=== PATIENT | male | born 1980 | race American Indian/Alaskan Native ===

== ENCOUNTER 2017-07-12 09:17 | Inpatient (IN) | payer OTHER ==
[2017-07-12] MEDS ORDERED: ASPIRIN PO ONE (09:28)
[2017-07-12 10:17] LABS: Basophils % (Auto) 0.2 % (0.0-1.8); Eosinophils % (Auto) 0.1 % (0.0-4.3); Hematocrit 45.4 % (35.5-45.6); Hemoglobin 15.3 gm/dl (11.8-15.2); Mean Corpuscular HGB Conc 34 % (32-34); Mean Corpuscular Hemoglobin 28 pg (28-32); Mean Corpuscular Volume 83 fl (84-94); Monocytes # (Auto) 0.6 K/mm3 (0.0-0.8); Monocytes % (Auto) 7.5 % (0.0-7.3); Platelet Count 382 K/mm3 (140-440); Red Blood Count 5.49 M/mm3 (3.65-5.03); Red Cell Distribution Width 14.7 % (13.2-15.2)
[2017-07-12 10:31] LABS: BUN/Creatinine Ratio 16; Blood Urea Nitrogen 14 mg/dL (9-20); Calcium 9.6 mg/dL (8.4-10.2); Hemolysis Index 11
[2017-07-12 10:43] LABS: Chol/HDL Ratio 5.79 %; HDL Cholesterol 34 mg/dL (40-59)
[2017-07-12 10:44] LABS: LDL Cholesterol,Direct 146 mg/dL (50-130)
--- NOTE | 2017-07-12 16:14 | XRay Report ---
PORTABLE CHEST: Chest pain. An AP portable view of the chest demonstrates a normal cardiac contour considering the limits of this technique. The lungs are clear with no evidence of infiltrate, fluid or failure. IMPRESSION: Normal portable chest.
[2017-07-12 16:35] LABS: INR 0.91 (0.87-1.13); Partial Thromboplastin Time 27.4 Sec. (24.2-36.6)
[2017-07-12 16:54] LABS: Creatine Kinase MB 30.2 ng/mL (0.0-4.0)
[2017-07-12 16:57] LABS: Alanine Aminotransferase 45 units/L (7-56); Albumin 4.6 g/dL (3.9-5)
[2017-07-12 17:14] LABS: Bilirubin,Direct < 0.2 mg/dL (0-0.2)
[2017-07-12] MEDS ORDERED: ASPIRIN ONE (17:49)
--- NOTE | 2017-07-12 18:11 | Emergency Department Report ---
ED Chest Pain HPI - General Chief Complaint: Chest Pain Stated Complaint: C/P DIFF BREATHING Time Seen by Provider: 07/12/17 15:50 Source: patient Mode of arrival: Ambulatory Limitations: No Limitations - History of Present Illness Initial Comments: Patient complains of intermittent chest pain since Wednesday. He states he went to a urgent care on was diagnosed with reflux. He started taking Pepto-Bismol and noted that his stool got somewhat darker after taking the Pepto -Bismol. However he had no signs of GI bleeding prior to taking Pepto-Bismol. He describes the pain as being located in the substernal subxiphoid region. It does not usually radiate although he states he felt some unusual sensation once in the right subscapular area. That was not persistent. The quality of the pain is either a tightness or a burning. Sometimes it does feel worse after eating. However, the patient describes accompanying dyspnea which is somewhat worse on exertion. The patient denies a family history of known coronary artery disease. He denies any previous workup for chest pain. He smokes. He denies cocaine abuse. -: Gradual, days(s) Onset: during rest Pain Location: substernal Pain Radiation: none Severity: moderate Quality: tightness Consistency: intermittent, now resolved Improves With: nothing Worsens With: nothing re: dyspnea Other Symptoms: denies: cough, fever, syncope, rash, acid taste in mouth, leg swelling Treatments Prior to Arrival: other Aspirin use within the Past 7 Days: (0) No - Related Data Previous Rx's Medication Instructions Recorded Last Taken Type Oxycodone HCl/Acetaminophen 1 each PO Q4-6H PRN #20 tablet 07/21/14 Unknown Rx [Percocet 10-325 mg] Allergies Allergy/AdvReac Type Severity Reaction Status Date / Time No Known Allergies Allergy Verified 07/21/14 09:40 Heart Score - HEART Score History: Moderately suspicious EKG: Significant ST-depression Age: < 45 Risk factors: 1-2 risk factors Troponin: 1-3x normal limit HEART Score: 5 - Critical Actions Critical Actions: 4-6 pts:12-16.6% risk of adverse cardiac event. Should be admitted ED Review of Systems ROS: Stated complaint: C/P DIFF BREATHING Other details as noted in HPI Constitutional: denies: chills, fever Eyes: denies: eye pain, eye discharge, vision change ENT: denies: ear pain, throat pain Respiratory: shortness of breath. denies: cough, wheezing Cardiovascular: chest pain. denies: palpitations Endocrine: no symptoms reported Gastrointestinal: denies: abdominal pain, nausea, diarrhea Genitourinary: denies: urgency, dysuria Musculoskeletal: denies: back pain, joint swelling, arthralgia Skin: denies: rash, lesions Neurological: denies: headache, weakness, paresthesias Psychiatric: denies: anxiety, depression Hematological/Lymphatic: denies: easy bleeding, easy bruising ED Past Medical Hx - Past Medical History Previous Medical History?: No - Surgical History Past Surgical History?: No - Social History Smoking Status: Current Every Day Smoker Substance Use Type: Alcohol - Medications Home Medications: Home Medications Medication Instructions Recorded Confirmed Last Taken Type Oxycodone HCl/Acetaminophen 1 each PO Q4-6H PRN #20 tablet 07/21/14 Unknown Rx [Percocet 10-325 mg] ED Physical Exam - General Limitations: No Limitations General appearance: alert, in no apparent distress - Head Head exam: Present: atraumatic, normocephalic - Eye Eye exam: Present: normal appearance. Absent: scleral icterus - ENT ENT exam: Present: mucous membranes moist - Neck Neck exam: Present: normal inspection - Respiratory Respiratory exam: Present: normal lung sounds bilaterally. Absent: respiratory distress - Cardiovascular Cardiovascular Exam: Present: regular rate, normal rhythm. Absent: systolic murmur, diastolic murmur, rubs, gallop - GI/Abdominal GI/Abdominal exam: Present: soft, normal bowel sounds. Absent: distended, tenderness, guarding, rebound, rigid - Rectal Rectal exam: Present: deferred - Extremities Exam Extremities exam: Present: normal inspection, normal capillary refill. Absent: tenderness, pedal edema, calf tenderness - Back Exam Back exam: Present: normal inspection - Neurological Exam Neurological exam: Present: alert, oriented X3, CN II-XII intact. Absent: motor sensory deficit - Psychiatric Psychiatric exam: Present: normal affect, normal mood - Skin Skin exam: Present: warm, dry, intact, normal color. Absent: rash ED Course Vital Signs 07/12/17 09:20 Temperature 98.9 F Pulse Rate 106 H Respiratory 16 Rate Blood Pressure 153/94 O2 Sat by Pulse 99 Oximetry - Reevaluation(s) Reevaluation #1: It took quite a bit of encouragement to get the patient to stay in the hospital. At this point I believe he is staying. I discussed his case with Dr. Aranda who has reviewed his laboratory database as well as his serial EKGs. I believe the patient is being admitted by Dr. Best. I do think the patient has an acute coronary syndrome. Further care by the hospitalist service and [facility]. 07/12/17 18:10 TYRA score - Tyra Score Age > 65: (0) No Aspirin use within the Past 7 Days: (0) No 3 or more CAD Risk Factors: (0) No 2 or more Angina events in past 24 hrs: (1) Yes Known CAD with more than 50% Stenosis: (0) No Elevated Cardiac Markers: (1) Yes ST Deviation Greater than 0.5mm: (1) Yes TYRA Score: 3 ED Medical Decision Making - Lab Data Result diagrams: 07/12/17 09:57 07/12/17 09:57 Laboratory Results - last 24 hr 07/12/17 07/12/17 07/12/17 09:57 09:57 12:14 WBC 8.2 RBC 5.49 H Hgb 15.3 H Hct 45.4 MCV 83 L MCH 28 MCHC 34 RDW 14.7 Plt Count 382 Lymph % (Auto) 24.0 [place] % (Auto) 7.5 H Eos % (Auto) 0.1 Baso % (Auto) 0.2 Lymph # 2.0 [place] # 0.6 Eos # 0.0 Baso # 0.0 Seg Neutrophils % 68.2 Seg Neutrophils # 5.6 PT INR APTT Sodium 139 Potassium 4.2 Chloride 97.5 L Carbon Dioxide 27 Anion Gap 19 BUN 14 Creatinine 0.9 Estimated GFR > 60 BUN/Creatinine Ratio 16 Glucose 104 H Calcium 9.6 Total Bilirubin Direct Bilirubin Indirect Bilirubin AST ALT Alkaline Phosphatase Total Creatine Kinase CK-MB (CK-2) CK-MB (CK-2) Rel Index Troponin T 0.090 H 0.137 H* D Total Protein Albumin Albumin/Globulin Ratio Triglycerides 89 Cholesterol 197 LDL Cholesterol Direct 146 H HDL Cholesterol 34 L Cholesterol/HDL Ratio 5.79 Blood Type 07/12/17 07/12/17 07/12/17 15:22 16:06 16:06 WBC RBC Hgb Hct MCV MCH MCHC RDW Plt Count Lymph % (Auto) [place] % (Auto) Eos % (Auto) Baso % (Auto) Lymph # [place] # Eos # Baso # Seg Neutrophils % Seg Neutrophils # PT 12.7 INR 0.91 APTT 27.4 Sodium Potassium Chloride Carbon Dioxide Anion Gap BUN Creatinine Estimated GFR BUN/Creatinine Ratio Glucose Calcium Total Bilirubin 0.30 Direct Bilirubin < 0.2 Indirect Bilirubin 0.1 AST 52 H ALT 45 Alkaline Phosphatase 49 Total Creatine Kinase 496 H CK-MB (CK-2) 30.2 H CK-MB (CK-2) Rel Index 6.0 H Troponin T 0.157 H* Total Protein 7.9 Albumin 4.6 Albumin/Globulin Ratio 1.4 Triglycerides Cholesterol LDL Cholesterol Direct HDL Cholesterol Cholesterol/HDL Ratio Blood Type 07/12/17 16:06 WBC RBC Hgb Hct MCV MCH MCHC RDW Plt Count Lymph % (Auto) [place] % (Auto) Eos % (Auto) Baso % (Auto) Lymph # [place] # Eos # Baso # Seg Neutrophils % Seg Neutrophils # PT INR APTT Sodium Potassium Chloride Carbon Dioxide Anion Gap BUN Creatinine Estimated GFR BUN/Creatinine Ratio Glucose Calcium Total Bilirubin Direct Bilirubin Indirect Bilirubin AST ALT Alkaline Phosphatase Total Creatine Kinase CK-MB (CK-2) CK-MB (CK-2) Rel Index Troponin T Total Protein Albumin Albumin/Globulin Ratio Triglycerides Cholesterol LDL Cholesterol Direct HDL Cholesterol Cholesterol/HDL Ratio Blood Type A POSITIVE - EKG Data EKG shows normal: sinus rhythm, axis (normal), QRS complexes (consider left ventricular hypertrophy) Rate: normal - EKG Data Interpretation: other (patient's EKG is of concern for ischemia anterior wall.) - Radiology Data interpreted by me: Chest x-ray showed no acute process Critical care attestation.: If time is entered above; I have spent that time in minutes in the direct care of this critically ill patient, excluding procedure time. ED Disposition Clinical Impression: Acute coronary syndrome Disposition: OP ADMIT IP TO THIS HOSP Is pt being admited?: Yes Does the pt Need Aspirin: Yes Condition: Stable Referrals: PRIMARY CARE, [Primary Care Provider] - 3-5 Days Time of Disposition: 18:13
[2017-07-12 19:06] LABS: Bilirubin,Urine NEG (Negative); Blood,Urine NEG (Negative); Color,Urine Yellow (Yellow); Mucus,Urine 3+ /HPF; Nitrite,Urine NEG (Negative); Protein,Urine <15 mg/dL mg/dL (Negative); Urobilinogen,Urine < 2.0 mg/dL (<2.0)
[2017-07-12 19:28] LABS: Amphetamine Screen,Urine PRESUMPTIVE NEGATIVE; Benzodiazepines Screen,Urine PRESUMPTIVE NEGATIVE; Cannabinoid Screen,Urine PRESUMPTIVE NEGATIVE; Cocaine Screen,Urine PRESUMPTIVE NEGATIVE; Methadone Screen,Urine PRESUMPTIVE NEGATIVE; Opiate Screen,Urine PRESUMPTIVE NEGATIVE
[2017-07-12] MEDS ORDERED: PLAVIX PO ONE (20:42)
[2017-07-12] MEDS ORDERED: HEPARIN 10,000 UNITS/10 ML IV ONE (20:44)
--- NOTE | 2017-07-12 20:51 | Consultation ---
History of Present Illness Consult date: 07/12/17 Consult reason: chest pain History of present illness: The patient is a 37-year-old man who has had intermittent chest pain for over a week. He initially went to an urgent care where he was treated for estrogen esophageal reflux, is continued to be symptomatic prompting his emergency room presentation. The patient has often been exertional, and its primarily described as an epigastric discomfort. In addition, there is associated shortness of breath. In the emergency room, EKG was a sinus rhythm with biphasic T waves in the anterior precordial leads. In addition, the CK-MB was elevated at 30 and represented 6% of the total CK fraction. At this time in the emergency room, the patient is chest pain-free looks and feels better, in a stable sinus rhythm and stable hemodynamics. Past History Past Medical History: hypertension Medications and Allergies Allergies Allergy/AdvReac Type Severity Reaction Status Date / Time No Known Allergies Allergy Verified 07/21/14 09:40 Home Medications Medication Instructions Recorded Confirmed Last Taken Type Oxycodone HCl/Acetaminophen 1 each PO Q4-6H PRN #20 tablet 07/21/14 07/12/17 Unknown Rx [Percocet 10-325 mg] Review of Systems Cardiovascular: chest pain, shortness of breath, no orthopnea, no palpitations, no rapid/irregular heart beat, no edema, no syncope, no lightheadedness Physical Examination Vital Signs Temp Pulse Resp BP Pulse Ox 98.9 F 106 H 16 153/94 99 07/12/17 09:20 07/12/17 09:20 07/12/17 09:20 07/12/17 09:20 07/12/17 09:20 General appearance: no acute distress HEENT: Positive: PERRL Neck: Positive: neck supple Cardiac: Positive: Reg Rate and Rhythm Lungs: Positive: Decreased Breath Sounds Neuro: Positive: Grossly Intact Abdomen: Positive: Soft Male genitourinary: Positive: deferred Skin: Positive: Clear Extremities: Absent: edema Results 07/12/17 09:57 07/12/17 09:57 Cardiac Enzymes 07/12/17 Range/Units 16:06 AST 52 H (5-40) units/L CK-MB (CK-2) 30.2 H (0.0-4.0) ng/mL Coagulation 07/12/17 Range/Units 16:06 PT 12.7 (12.2-14.9) Sec. INR 0.91 (0.87-1.13) APTT 27.4 (24.2-36.6) Sec. Lipids 07/12/17 Range/Units 09:57 Triglycerides 89 (2-149) mg/dL Cholesterol 197 (50-199) mg/dL HDL Cholesterol 34 L (40-59) mg/dL Cholesterol/HDL Ratio 5.79 % CBC 07/12/17 Range/Units 09:57 WBC 8.2 (4.5-11.0) K/mm3 RBC 5.49 H (3.65-5.03) M/mm3 Hgb 15.3 H (11.8-15.2) gm/dl Hct 45.4 (35.5-45.6) % Plt Count 382 (140-440) K/mm3 Lymph # 2.0 (1.2-5.4) K/mm3 [place] # 0.6 (0.0-0.8) K/mm3 Eos # 0.0 (0.0-0.4) K/mm3 Baso # 0.0 (0.0-0.1) K/mm3 Comprehensive Metabolic Panel 07/12/17 07/12/17 Range/Units 09:57 16:06 Sodium 139 (137-145) mmol/L Potassium 4.2 (3.6-5.0) mmol/L Chloride 97.5 L (98-107) mmol/L Carbon Dioxide 27 (22-30) mmol/L BUN 14 (9-20) mg/dL Creatinine 0.9 (0.8-1.5) mg/dL Glucose 104 H (75-100) mg/dL Calcium 9.6 (8.4-10.2) mg/dL Direct Bilirubin < 0.2 (0-0.2) mg/dL Indirect Bilirubin 0.1 mg/dL AST 52 H (5-40) units/L ALT 45 (7-56) units/L Alkaline Phosphatase 49 (35-129) units/L Total Protein 7.9 (6.3-8.2) g/dL Albumin 4.6 (3.9-5) g/dL EKG interpretations - Telemetry EKG Rhythm: Sinus Rhythm (biphasic T waves in the anterior precordial leads) Assessment and Plan - Patient Problems (1) Non-ST elevation myocardial infarction (NSTEMI) Current Visit: Yes Status: Acute Plan to address problem: Patient presents with intermittent chest pain, ischemic changes on his EKG and elevation of cardiac isoenzymes all suggestive of a possible non-ST elevation myocardial infarction. We will admit to telemetry on heparin, aspirin, Plavix, beta blockers and nitrates. We'll recommend early invasive strategy with cardiac catheterization in the morning.
[2017-07-12] MEDS ORDERED: NACL 0.9% 500 ML 500 ML IV SCH (21:00)
[2017-07-12] MEDS ORDERED: HEPARIN/ 0.45% NACL-25,000 UNIT/500 ML 25,000 UNIT/500 ML BAG IV SCH (21:00)
[2017-07-12 21:09] LABS: Hematocrit 45.6 % (35.5-45.6); Hemoglobin 14.9 gm/dl (11.8-15.2)
[2017-07-12 21:17] LABS: INR 0.95 (0.87-1.13)
[2017-07-12 21:18] LABS: Partial Thromboplastin Time 27.3 Sec. (24.2-36.6)
--- NOTE | 2017-07-12 21:42 | History and Physical Report ---
History of Present Illness Date of examination: 07/12/17 Chief complaint: Chest pain History of present illness: 37-year-old -[place] male with no significant past medical history presented to the emergency department complaining of epigastric/substernal pain for the last 3-4 days. Pain is burning in quality, 8 out of 10 intensity, associated with shortness of breath, with no radiation. He denied cough, palpitation, leg swelling, nausea vomiting or diarrhea. The pain is aggravated by eating large fatty meal. Patient said he had occasional burning pain in the epigastric area on previous occasions. In the emergency department EKG was done and showed aphasic T waves in the anterior pericardial leads. Elevated troponin, trending up. REVIEW OF SYSTEMS: GENERAL: no weight change, no fatigue, no fever HEAD: no head ache EYES: no blurry vision, no acute visual loss EARS: no hearing loss, no discharge, no earache NOSE: no stuffiness, no sneezing, no discharge MOUTH, THROAT AND NECK: no bleeding gums, no sore throat, no swollen neck CARDIAC: As in the HPI. RESPIRATORY: + shortness of breath, no wheeze, no cough, no sputum, no hemoptysis, no asthma GI: no decreased appetite, no nausea, no vomiting, no dysphagia, no diarrhea, no constipation, + epigastric pain URINARY: no change in frequency, no urgency, no polyuria, no hematuria, no incontinence MUSCULOSKELETAL: no muscle weakness, no pain, no joint stiffness NEUROLOGIC: no loss of sensation/numbness, no tingling, no tremors, no weakness/ paralysis HEMATOLOGIC: no anemia, no easy bruising SKIN: no rashes ENDOCRINE: no heat/cold intolerance, no polyuria, no polydipsia, no thyroid problems, no diabetes PSYCHIATRIC: no anxiety, no depression, no suicidal ideations Past History Past Medical History: GERD, hypertension Past Surgical History: No surgical history Social history: smoking (5-6 cigarettes a day), alcohol abuse (occasionally), full code. denies: prescription drug abuse, IV drug use Family history: no significant family history Medications and Allergies Allergies Allergy/AdvReac Type Severity Reaction Status Date / Time No Known Allergies Allergy Verified 07/21/14 09:40 Home Medications Medication Instructions Recorded Confirmed Last Taken Type Oxycodone HCl/Acetaminophen 1 each PO Q4-6H PRN #20 tablet 07/21/14 07/12/17 Unknown Rx [Percocet 10-325 mg] Active Meds: Active Medications Aspirin (Aspirin) 325 mg PO QDAY REGLA Atorvastatin Calcium (Lipitor) 20 mg PO QHS REGLA Clopidogrel Bisulfate (Plavix) 75 mg PO QDAY REGLA Heparin Sodium/Sodium Chloride (Heparin/ 0.45% Nacl-25,000 Unit/500 Ml) 25,000 unit in 500 mls @ 20 mls/hr IV TITRATE REGLA; 1,000 UNITS/HR PRN Reason: Protocol Sodium Chloride (Nacl 0.9% 500 Ml) 500 mls @ 50 mls/hr IV DIRECT REGLA Stop: 07/13/17 06:59 Metoprolol Tartrate (Lopressor) 25 mg PO BID REGLA Nitroglycerin (Nitro-Bid 2%) 1 inch TP QIDNTG REGLA PRN Reason: Protocol Exam - Physical Exam Narrative exam: Not in cardiopulmonary distress. The patient is obese. Vital signs as documented. Head exam is unremarkable. No scleral icterus . Neck is without jugular venous distension, thyromegaly, or carotid bruits. Lungs are clear to auscultation. Cardiac exam reveals regular rate and Rhythm. First and second heart sounds normal. No murmurs, rubs or gallops. Abdominal exam reveals normal bowel sounds, no masses, no organomegaly and no aortic enlargement. Extremities are nonedematous and both femoral and pedal pulses are normal. [employer] OPERATOR: Alert and oriented 3. No focal weakness. - Constitutional Vitals: Temp Pulse Resp BP Pulse Ox 98.9 F 84 16 147/85 95 07/12/17 09:20 07/12/17 18:09 07/12/17 18:09 07/12/17 18:09 07/12/17 18:09 Results - Labs CBC & Chem 7: 07/12/17 20:58 07/12/17 09:57 Labs: Laboratory Last Values WBC 8.2 K/mm3 (4.5-11.0) 07/12/17 09:57 RBC 5.49 M/mm3 (3.65-5.03) H 07/12/17 09:57 Hgb 14.9 gm/dl (11.8-15.2) 07/12/17 20:58 Hct 45.6 % (35.5-45.6) 07/12/17 20:58 MCV 83 fl (84-94) L 07/12/17 09:57 MCH 28 pg (28-32) 07/12/17 09:57 MCHC 34 % (32-34) 07/12/17 09:57 RDW 14.7 % (13.2-15.2) 07/12/17 09:57 Plt Count 385 K/mm3 (140-440) 07/12/17 20:58 Lymph % (Auto) 24.0 % (13.4-35.0) 07/12/17 09:57 [place] % (Auto) 7.5 % (0.0-7.3) H 07/12/17 09:57 Eos % (Auto) 0.1 % (0.0-4.3) 07/12/17 09:57 Baso % (Auto) 0.2 % (0.0-1.8) 07/12/17 09:57 Lymph # 2.0 K/mm3 (1.2-5.4) 07/12/17 09:57 [place] # 0.6 K/mm3 (0.0-0.8) 07/12/17 09:57 Eos # 0.0 K/mm3 (0.0-0.4) 07/12/17 09:57 Baso # 0.0 K/mm3 (0.0-0.1) 07/12/17 09:57 Seg Neutrophils % 68.2 % (40.0-70.0) 07/12/17 09:57 Seg Neutrophils # 5.6 K/mm3 (1.8-7.7) 07/12/17 09:57 PT 13.1 Sec. (12.2-14.9) 07/12/17 20:58 INR 0.95 (0.87-1.13) 07/12/17 20:58 APTT 27.3 Sec. (24.2-36.6) 07/12/17 20:58 Sodium 139 mmol/L (137-145) 07/12/17 09:57 Potassium 4.2 mmol/L (3.6-5.0) 07/12/17 09:57 Chloride 97.5 mmol/L (98-107) L 07/12/17 09:57 Carbon Dioxide 27 mmol/L (22-30) 07/12/17 09:57 Anion Gap 19 mmol/L 07/12/17 09:57 BUN 14 mg/dL (9-20) 07/12/17 09:57 Creatinine 0.9 mg/dL (0.8-1.5) 07/12/17 09:57 Estimated GFR > 60 ml/min 07/12/17 09:57 BUN/Creatinine Ratio 16 % 07/12/17 09:57 Glucose 104 mg/dL (75-100) H 07/12/17 09:57 Calcium 9.6 mg/dL (8.4-10.2) 07/12/17 09:57 Total Bilirubin 0.30 mg/dL (0.1-1.2) 07/12/17 16:06 Direct Bilirubin < 0.2 mg/dL (0-0.2) 07/12/17 16:06 Indirect Bilirubin 0.1 mg/dL 07/12/17 16:06 AST 52 units/L (5-40) H 07/12/17 16:06 ALT 45 units/L (7-56) 07/12/17 16:06 Alkaline Phosphatase 49 units/L (35-129) 07/12/17 16:06 Total Creatine Kinase 496 units/L (55-170) H 07/12/17 16:06 CK-MB (CK-2) 30.2 ng/mL (0.0-4.0) H 07/12/17 16:06 CK-MB (CK-2) Rel Index 6.0 (0-4) H 07/12/17 16:06 Troponin T 0.157 ng/mL (0.00-0.029) H* 07/12/17 15:22 Total Protein 7.9 g/dL (6.3-8.2) 07/12/17 16:06 Albumin 4.6 g/dL (3.9-5) 07/12/17 16:06 Albumin/Globulin Ratio 1.4 % 07/12/17 16:06 Triglycerides 89 mg/dL (2-149) 07/12/17 09:57 Cholesterol 197 mg/dL (50-199) 07/12/17 09:57 LDL Cholesterol Direct 146 mg/dL (50-130) H 07/12/17 09:57 HDL Cholesterol 34 mg/dL (40-59) L 07/12/17 09:57 Cholesterol/HDL Ratio 5.79 % 07/12/17 09:57 Urine Color Yellow (Yellow) 07/12/17 Unknown Urine Turbidity Clear (Clear) 07/12/17 Unknown Urine pH 5.0 (5.0-7.0) 07/12/17 Unknown Ur Specific [place] 1.027 (1.003-1.030) 07/12/17 Unknown Urine Protein <15 mg/dl mg/dL (Negative) 07/12/17 Unknown Urine Glucose (UA) Neg mg/dL (Negative) 07/12/17 Unknown Urine Ketones Neg mg/dL (Negative) 07/12/17 Unknown Urine Blood Neg (Negative) 07/12/17 Unknown Urine Nitrite Neg (Negative) 07/12/17 Unknown Urine Bilirubin Neg (Negative) 07/12/17 Unknown Urine Urobilinogen < 2.0 mg/dL (<2.0) 07/12/17 Unknown Ur Leukocyte Esterase Neg (Negative) 07/12/17 Unknown Urine WBC (Auto) 4.0 /HPF (0.0-6.0) 07/12/17 Unknown Urine RBC (Auto) 9.0 /HPF (0.0-6.0) 07/12/17 Unknown Urine Mucus 3+ /HPF 07/12/17 Unknown Urine Opiates Screen Presumptive negative 07/12/17 18:35 Urine Methadone Screen Presumptive negative 07/12/17 18:35 Ur Barbiturates Screen Presumptive negative 07/12/17 18:35 Ur Phencyclidine Scrn Presumptive negative 07/12/17 18:35 Ur Amphetamines Screen Presumptive negative 07/12/17 18:35 U Benzodiazepines Scrn Presumptive negative 07/12/17 18:35 Urine Cocaine Screen Presumptive negative 07/12/17 18:35 U Marijuana (THC) Screen Presumptive negative 07/12/17 18:35 Drugs of Abuse Note Disclamer 07/12/17 18:35 Blood Type A POSITIVE 07/12/17 16:06 Antibody Screen Negative 07/12/17 16:06 - Imaging and Cardiology EKG: image reviewed (biphasic T waves in the anterior pericardial leads) Chest x-ray: image reviewed (normal) Assessment and Plan Assessment and plan: 37 year old -[place] male with no significant past medical history presented to the emergency department complaining of epigastric/substernal pain for the last 3-4 days. Cardiac enzymes are positive. NSTEMI - Patient is on heparin drip, statin, beta blockers, aspirin - Cardiology will cardiac cath in the morning GERD - patient is on famotidine DVT prophylaxis Disposition - Admit to telemetry floor Advance Directives: Yes VTE prophylaxis?: Chemical Plan of care discussed with patient/family: Yes
[2017-07-12] MEDS: LOPRESSOR PO SCH (22:55)
[2017-07-12] MEDS: PEPCID PO SCH (23:38)
[2017-07-13] MEDS: NITRO-BID 2% TP SCH ×3 (07:00→21:01)
[2017-07-13] MEDS ORDERED: CALAN ONE (08:25)
[2017-07-13] MEDS ORDERED: XYLOCAINE 2% INFILTRATI ONE (08:25)
[2017-07-13] MEDS ORDERED: HEPARIN/NS 5000 UNIT/500ML(CATH LAB) 1,000 ML IR ONE (08:25)
[2017-07-13] MEDS ORDERED: NITROGLYCERIN SYRINGE 3 ML ONE ×3 (08:26→12:24)
[2017-07-13] MEDS ORDERED: VERSED ONE (08:27)
[2017-07-13] MEDS: SUBLIMAZE ONE ×2 (11:50→12:16)
[2017-07-13] MEDS: HEPARIN 10,000 UNITS/10 ML ONE ×3 (11:56→12:47)
[2017-07-13] MEDS ORDERED: PLAVIX ONE (12:10)
--- NOTE | 2017-07-13 12:44 | Event Note ---
Date: 07/13/17 Cardiac cath completed via R radial approach, no complications. Findings: >95% mid LAD stenosis. Successful PCI with 3.5-4.0mm DE stents. Excellent post PCI results, no complications.
[2017-07-13] MEDS: PLAVIX PO SCH (12:47)
[2017-07-13] MEDS ORDERED: NACL 0.9% 1000 ML 1,000 ML IV SCH (13:00)
--- NOTE | 2017-07-13 14:32 | Progress Note ---
Assessment and Plan Assessment and plan: Patient is a 37-year-old man which are GERD, tobacco dependency (1 pack of [place]if[place] will last him 1 week) and alcohol abuse (a 5th of Joseph Tequila will last him 1 day) who presented with CP. He was found to have elevated troponin and diagnosed with non-STEMI and treated with IV heparin. He under cardiac cath and results as follows: Cardiac cath completed via R radial approach, no complications. Findings: >95% mid LAD stenosis. Successful PCI with 3.5-4.0mm DE stents. Excellent post PCI results, no complications. -NSTEMI s/p pci: Cardiology following bb,asa, plavix, statin, ntg -Alcohol abuse: Counseling done, start CIWA protocol -Tobacco dependancy: Counseling done -GERD: Use Pepcid due to stent History Interval history: Patient was seen and examined. Follow-up on current diagnosis/chest pain. Overnight uneventful. Patient denies any chest pain, shortness breath, nausea/ vomiting or severe headaches. Imaging, nursing note, chart, labs and old chart reviewed. Discussed with patient. Hospitalist Physical - Physical exam Narrative exam: GEN: WDWN, NAD, AWAKE, ALERT, ORIENTATED 3 HEENT: NCAT, EOMI, PERRL, OP Clear NECK: supple, no adenopathy, no thyromegaly, no JVD CVS/HEART: RRR, NORMAL S1S2, NO JVD, pulses present bilaterally CHEST/LUNGS: CTA B, Symmetrical chest expansion, good air entry bilaterally GI/Abdomen: soft, NTND, good bowel sounds, no guarding or rebound /Bladder: no suprapubic tenderness, no CVA or paraspinal tenderness EXT/Skin: no c/c/e, no obvious rash MSK: FROM x 4 Neuro: CN 2-12 grossly intact, no new focal deficits Psych: calm - Constitutional Vitals: Temp Pulse Resp BP Pulse Ox 99.0 F 83 18 138/84 98 07/12/17 20:00 07/13/17 00:13 07/13/17 00:09 07/12/17 20:00 07/13/17 00:09 General appearance: Present: no acute distress Results - Labs CBC & Chem 7: 07/12/17 20:58 07/12/17 09:57 Labs: Laboratory Last Values WBC 8.2 K/mm3 (4.5-11.0) 07/12/17 09:57 RBC 5.49 M/mm3 (3.65-5.03) H 07/12/17 09:57 Hgb 14.9 gm/dl (11.8-15.2) 07/12/17 20:58 Hct 45.6 % (35.5-45.6) 07/12/17 20:58 MCV 83 fl (84-94) L 07/12/17 09:57 MCH 28 pg (28-32) 07/12/17 09:57 MCHC 34 % (32-34) 07/12/17 09:57 RDW 14.7 % (13.2-15.2) 07/12/17 09:57 Plt Count 385 K/mm3 (140-440) 07/12/17 20:58 Lymph % (Auto) 24.0 % (13.4-35.0) 07/12/17 09:57 [place] % (Auto) 7.5 % (0.0-7.3) H 07/12/17 09:57 Eos % (Auto) 0.1 % (0.0-4.3) 07/12/17 09:57 Baso % (Auto) 0.2 % (0.0-1.8) 07/12/17 09:57 Lymph # 2.0 K/mm3 (1.2-5.4) 07/12/17 09:57 [place] # 0.6 K/mm3 (0.0-0.8) 07/12/17 09:57 Eos # 0.0 K/mm3 (0.0-0.4) 07/12/17 09:57 Baso # 0.0 K/mm3 (0.0-0.1) 07/12/17 09:57 Seg Neutrophils % 68.2 % (40.0-70.0) 07/12/17 09:57 Seg Neutrophils # 5.6 K/mm3 (1.8-7.7) 07/12/17 09:57 PT 13.1 Sec. (12.2-14.9) 07/12/17 20:58 INR 0.95 (0.87-1.13) 07/12/17 20:58 APTT 27.3 Sec. (24.2-36.6) 07/12/17 20:58 Heparin Anti-Xa Level 0.27 U.I./ml (0.3-0.7) L 07/13/17 04:22 Sodium 139 mmol/L (137-145) 07/12/17 09:57 Potassium 4.2 mmol/L (3.6-5.0) 07/12/17 09:57 Chloride 97.5 mmol/L (98-107) L 07/12/17 09:57 Carbon Dioxide 27 mmol/L (22-30) 07/12/17 09:57 Anion Gap 19 mmol/L 07/12/17 09:57 BUN 14 mg/dL (9-20) 07/12/17 09:57 Creatinine 0.9 mg/dL (0.8-1.5) 07/12/17 09:57 Estimated GFR > 60 ml/min 07/12/17 09:57 BUN/Creatinine Ratio 16 % 07/12/17 09:57 Glucose 104 mg/dL (75-100) H 07/12/17 09:57 POC Glucose 90 (70-105) 07/13/17 05:15 Calcium 9.6 mg/dL (8.4-10.2) 07/12/17 09:57 Total Bilirubin 0.30 mg/dL (0.1-1.2) 07/12/17 16:06 Direct Bilirubin < 0.2 mg/dL (0-0.2) 07/12/17 16:06 Indirect Bilirubin 0.1 mg/dL 07/12/17 16:06 AST 52 units/L (5-40) H 07/12/17 16:06 ALT 45 units/L (7-56) 07/12/17 16:06 Alkaline Phosphatase 49 units/L (35-129) 07/12/17 16:06 Total Creatine Kinase 496 units/L (55-170) H 07/12/17 16:06 CK-MB (CK-2) 30.2 ng/mL (0.0-4.0) H 07/12/17 16:06 CK-MB (CK-2) Rel Index 6.0 (0-4) H 07/12/17 16:06 Troponin T 0.157 ng/mL (0.00-0.029) H* 07/12/17 15:22 Total Protein 7.9 g/dL (6.3-8.2) 07/12/17 16:06 Albumin 4.6 g/dL (3.9-5) 07/12/17 16:06 Albumin/Globulin Ratio 1.4 % 07/12/17 16:06 Triglycerides 89 mg/dL (2-149) 07/12/17 09:57 Cholesterol 197 mg/dL (50-199) 07/12/17 09:57 LDL Cholesterol Direct 146 mg/dL (50-130) H 07/12/17 09:57 HDL Cholesterol 34 mg/dL (40-59) L 07/12/17 09:57 Cholesterol/HDL Ratio 5.79 % 07/12/17 09:57 Urine Color Yellow (Yellow) 07/12/17 Unknown Urine Turbidity Clear (Clear) 07/12/17 Unknown Urine pH 5.0 (5.0-7.0) 07/12/17 Unknown Ur Specific [place] 1.027 (1.003-1.030) 07/12/17 Unknown Urine Protein <15 mg/dl mg/dL (Negative) 07/12/17 Unknown Urine Glucose (UA) Neg mg/dL (Negative) 07/12/17 Unknown Urine Ketones Neg mg/dL (Negative) 07/12/17 Unknown Urine Blood Neg (Negative) 07/12/17 Unknown Urine Nitrite Neg (Negative) 07/12/17 Unknown Urine Bilirubin Neg (Negative) 07/12/17 Unknown Urine Urobilinogen < 2.0 mg/dL (<2.0) 07/12/17 Unknown Ur Leukocyte Esterase Neg (Negative) 07/12/17 Unknown Urine WBC (Auto) 4.0 /HPF (0.0-6.0) 07/12/17 Unknown Urine RBC (Auto) 9.0 /HPF (0.0-6.0) 07/12/17 Unknown Urine Mucus 3+ /HPF 07/12/17 Unknown Urine Opiates Screen Presumptive negative 07/12/17 18:35 Urine Methadone Screen Presumptive negative 07/12/17 18:35 Ur Barbiturates Screen Presumptive negative 07/12/17 18:35 Ur Phencyclidine Scrn Presumptive negative 07/12/17 18:35 Ur Amphetamines Screen Presumptive negative 07/12/17 18:35 U Benzodiazepines Scrn Presumptive negative 07/12/17 18:35 Urine Cocaine Screen Presumptive negative 07/12/17 18:35 U Marijuana (THC) Screen Presumptive negative 07/12/17 18:35 Drugs of Abuse Note Disclamer 07/12/17 18:35 Blood Type A POSITIVE 07/12/17 16:06 Antibody Screen Negative 07/12/17 16:06
[2017-07-13] MEDS ORDERED: ATIVAN IV PRN ×3 (14:33)
[2017-07-13] MEDS ORDERED: HALDOL IV PRN (14:33)
[2017-07-13] MEDS ORDERED: MORPHINE IV PRN (14:41)
[2017-07-13] MEDS ORDERED: TYLENOL PO PRN (14:41)
[2017-07-13] MEDS ORDERED: NORCO 5/325 ONE (15:03)
[2017-07-13] MEDS: NORCO 5/325 PO PRN ×2 (15:04→22:49)
--- NOTE | 2017-07-13 16:34 | Cardiac Catherization Report ---
CARDIAC CATHETERIZATION AND CORONARY ANGIOPLASTY REPORT REASON FOR PROCEDURE: The patient is a 37-year-old man who presented with acute coronary syndrome, manifested by exertional chest pain, biphasic T waves on the EKG and elevated cardiac isoenzymes consistent with a non-ST elevation myocardial infarction. Early invasive strategy with cardiac catheterization was recommended. The risks and benefits were discussed with the patient and he consented to proceed. PROCEDURE: 1. Left heart catheterization. 2. Selective left and right coronary angiography. 3. Left ventricle angiography. The patient was prepped and draped in a sterile fashion after informed consent. The right radial cath site was prepped and draped after a negative Trip's test. The right radial artery was entered using Seldinger technique followed by placement of a 6-Japanese hydrophilic sheath. Routine radial cocktail was administered via the sheath. Selective left and right coronary angiography was performed using a 3.5 left Italo catheter and #4 right Italo. The right Italo was used for left ventricular catheterization and left ventricle angiography. The angiograms were reviewed. The left main coronary artery was free of significant disease. The left anterior descending artery contained an eccentric, focal, 95-99% stenosis of its proximal to mid segment. This lesion was associated with delayed antegrade flow. The circumflex artery and its obtuse marginal branches contained mild luminal irregularities. The right coronary artery was dominant. This vessel contained a long, 20-30% stenosis of its proximal segment. Left ventricular systolic function was at lower limits of normal, ejection fraction 50-55%. CORONARY ANGIOPLASTY: Ad hoc coronary angioplasty of the mid LAD stenosis was recommended. We exchanged for a 3.0 XB guiding catheter and advanced to left coronary ostium. A 0.014 inch [facility] 50 wire was introduced into the LAD, successfully maneuvered across the stenotic lesion. Following wire placement in the distal LAD, we then predilated the stenosis using a 3.0 mm balloon catheter. Following predilatation, a 4.0 mm drug-eluting stent was then deployed to the primary lesion and inflated to optimal pressures. Following that, another 3.5 mm drug-eluting stent was deployed in anastomosis to the distal border of the first stent to cover a possible edge dissection of the first stent. Following deployment of both stents, there was an excellent angiographic result, zero residual stenosis and TYRA 3 flow. Procedure was well tolerated by the patient and no complications. CONCLUSION: 1. Coronary artery disease with a greater than 95% stenosis of the proximal to mid LAD. 2. Successful angioplasty and stenting with deployment of serial, 3.5-4.0 mm drug-eluting stents. 3. Left ventricular systolic function at lower limits of normal, ejection fraction 50-55%. JOB# [id number] SERGE/NTS
[2017-07-13] MEDS: ASPIRIN PO SCH (18:27)
[2017-07-13] MEDS: VITAMIN B-1 PO SCH (18:27)
[2017-07-13] MEDS: PEPCID PO SCH ×2 (18:28→22:50)
[2017-07-13] MEDS: LOPRESSOR PO SCH ×2 (18:34→22:50)
[2017-07-14] MEDS: NITRO-BID 2% TP SCH ×2 (06:26→09:08)
[2017-07-14 06:31] LABS: Basophils % (Auto) 0.3 % (0.0-1.8); Eosinophils # (Auto) 0.1 K/mm3 (0.0-0.4); Eosinophils % (Auto) 1.3 % (0.0-4.3); Hematocrit 42.4 % (35.5-45.6); Lymphocytes # (Auto) 2.4 K/mm3 (1.2-5.4); Lymphocytes % (Auto) 28.1 % (13.4-35.0); Mean Corpuscular HGB Conc 33 % (32-34); Mean Corpuscular Hemoglobin 28 pg (28-32); Mean Corpuscular Volume 84 fl (84-94); Platelet Count 363 K/mm3 (140-440); Red Blood Count 5.02 M/mm3 (3.65-5.03); Red Cell Distribution Width 14.8 % (13.2-15.2)
[2017-07-14 06:58] LABS: Creatine Kinase MB 32.6 ng/mL (0.0-4.0)
[2017-07-14 07:00] LABS: BUN/Creatinine Ratio 15; Blood Urea Nitrogen 12 mg/dL (9-20); Calcium 8.9 mg/dL (8.4-10.2); Hemolysis Index 13
--- NOTE | 2017-07-14 07:59 | XRay Report ---
AP CHEST: HISTORY: chest pain AP view of the chest demonstrates a normal mediastinal and cardiac contour with clear lungs and normal bony and soft tissue structures. IMPRESSION: Unremarkable AP chest.
[2017-07-14 08:14] VITALS: BP 136/92
[2017-07-14] MEDS: PLAVIX PO SCH (09:07)
[2017-07-14] MEDS: PEPCID PO SCH (09:07)
[2017-07-14] MEDS: LOPRESSOR PO SCH (09:07)
[2017-07-14] MEDS: VITAMIN B-1 PO SCH (09:07)
[2017-07-14] MEDS: ASPIRIN PO SCH (09:07)
--- NOTE | 2017-07-14 11:21 | Progress Note ---
Assessment and Plan NSTEMI s/p PCI of mid LAD stenosis using DE stents EF 50-55% on angiogram Tobacco abuse Recommendations: Advised smoking cessation. Continue medical therapy for coronary artery disease to includin plavix and aspirin without interruption. Once discharged, follow up with [facility] as scheduled . Subjective Date of service: 07/14/17 Interval history: Patient reports intermittent chest pressure overnight. Objective Vital Signs Temp Pulse Pulse Resp Resp BP BP 07/14/17 10:00 72 68 18 07/14/17 09:11 07/14/17 09:08 68 136/92 07/14/17 09:07 68 136/92 07/14/17 07:37 97.8 F 68 18 136/92 07/14/17 05:06 97.8 F 71 18 115/68 07/14/17 00:18 97.5 F L 20 124/67 07/14/17 00:17 97.5 F L 18 107/63 07/14/17 00:16 97.5 F L 71 18 119/61 07/13/17 23:49 20 07/13/17 22:50 74 128/88 07/13/17 22:49 18 07/13/17 20:28 07/13/17 20:22 80 07/13/17 20:09 20 07/13/17 19:56 97.5 F L 74 18 128/88 07/13/17 19:42 20 07/13/17 19:40 18 18 07/13/17 19:39 20 07/13/17 18:34 80 127/78 07/13/17 17:16 86 Pulse Ox 07/14/17 10:00 98 07/14/17 09:11 95 07/14/17 09:08 07/14/17 09:07 07/14/17 07:37 98 07/14/17 05:06 99 07/14/17 00:18 07/14/17 00:17 07/14/17 00:16 97 07/13/17 23:49 07/13/17 22:50 07/13/17 22:49 07/13/17 20:28 100 07/13/17 20:22 07/13/17 20:09 07/13/17 19:56 07/13/17 19:42 07/13/17 19:40 98 07/13/17 19:39 07/13/17 18:34 07/13/17 17:16 100 - Physical Examination General: No Apparent Distress HEENT: Positive: PERRL Cardiac: Positive: Reg Rate and Rhythm Neuro: Positive: Grossly Intact Incision: Cardiac Cath Site (right radial) - Labs and Meds Cardiac Enzymes 07/14/17 Range/Units 04:50 CK-MB (CK-2) 32.6 H (0.0-4.0) ng/mL CBC 07/14/17 Range/Units 04:50 WBC 8.7 (4.5-11.0) K/mm3 RBC 5.02 (3.65-5.03) M/mm3 Hgb 14.0 (11.8-15.2) gm/dl Hct 42.4 (35.5-45.6) % Plt Count 363 (140-440) K/mm3 Lymph # 2.4 (1.2-5.4) K/mm3 [place] # 1.0 H (0.0-0.8) K/mm3 Eos # 0.1 (0.0-0.4) K/mm3 Baso # 0.0 (0.0-0.1) K/mm3 Comprehensive Metabolic Panel 07/14/17 Range/Units 04:50 Sodium 136 L (137-145) mmol/L Potassium 4.5 (3.6-5.0) mmol/L Chloride 97.5 L (98-107) mmol/L Carbon Dioxide 24 (22-30) mmol/L BUN 12 (9-20) mg/dL Creatinine 0.8 (0.8-1.5) mg/dL Glucose 96 (75-100) mg/dL Calcium 8.9 (8.4-10.2) mg/dL - Imaging and Cardiology EKG: image reviewed (biphasic T waves in the anterior pericardial leads)
--- NOTE | 2017-07-14 11:58 | Progress Note ---
Assessment and Plan Assessment and plan: Patient is a 37-year-old man which are GERD, tobacco dependency (1 pack of [place]if[place] will last him 1 week) and alcohol abuse (a 5th of Joseph Tequila will last him 1 day) who presented with CP. He was found to have elevated troponin and diagnosed with non-STEMI and treated with IV heparin. He under cardiac cath and results as follows: Cardiac cath completed via R radial approach, no complications. Findings: >95% mid LAD stenosis. Successful PCI with 3.5-4.0mm DE stents. Excellent post PCI results, no complications. -NSTEMI s/p pci: Cardiology following bb,asa, plavix, statin, ntg -Alcohol abuse: Counseling done, start CIWA protocol -Tobacco dependancy: Counseling done -GERD: Use Pepcid due to stent D/c once cleared by Cardiology, he still has ntg paste History Interval history: Patient was seen and examined. Follow-up on current diagnosis/chest pain. Overnight uneventful. Patient denies any shortness breath, nausea/vomiting or severe headaches. Imaging, nursing note, chart, labs and old chart reviewed. Discussed with patient. He had intermitted chest pain overnight. Hospitalist Physical - Physical exam Narrative exam: GEN: WDWN, NAD, AWAKE, ALERT, ORIENTATED 3 HEENT: NCAT, EOMI, PERRL, OP Clear NECK: supple, no adenopathy, no thyromegaly, no JVD CVS/HEART: RRR, NORMAL S1S2, NO JVD, pulses present bilaterally CHEST/LUNGS: CTA B, Symmetrical chest expansion, good air entry bilaterally GI/Abdomen: soft, NTND, good bowel sounds, no guarding or rebound /Bladder: no suprapubic tenderness, no CVA or paraspinal tenderness EXT/Skin: no c/c/e, no obvious rash MSK: FROM x 4 Neuro: CN 2-12 grossly intact, no new focal deficits Psych: calm - Constitutional Vitals: Temp Pulse Resp BP Pulse Ox 97.8 F 68 18 136/92 98 07/14/17 07:37 07/14/17 10:00 07/14/17 10:00 07/14/17 09:08 07/14/17 10:00 General appearance: Present: no acute distress Results - Labs CBC & Chem 7: 07/14/17 04:50 07/14/17 04:50 Labs: Laboratory Last Values WBC 8.7 K/mm3 (4.5-11.0) 07/14/17 04:50 RBC 5.02 M/mm3 (3.65-5.03) 07/14/17 04:50 Hgb 14.0 gm/dl (11.8-15.2) 07/14/17 04:50 Hct 42.4 % (35.5-45.6) 07/14/17 04:50 MCV 84 fl (84-94) 07/14/17 04:50 MCH 28 pg (28-32) 07/14/17 04:50 MCHC 33 % (32-34) 07/14/17 04:50 RDW 14.8 % (13.2-15.2) 07/14/17 04:50 Plt Count 363 K/mm3 (140-440) 07/14/17 04:50 Lymph % (Auto) 28.1 % (13.4-35.0) 07/14/17 04:50 [place] % (Auto) 11.0 % (0.0-7.3) H 07/14/17 04:50 Eos % (Auto) 1.3 % (0.0-4.3) 07/14/17 04:50 Baso % (Auto) 0.3 % (0.0-1.8) 07/14/17 04:50 Lymph # 2.4 K/mm3 (1.2-5.4) 07/14/17 04:50 [place] # 1.0 K/mm3 (0.0-0.8) H 07/14/17 04:50 Eos # 0.1 K/mm3 (0.0-0.4) 07/14/17 04:50 Baso # 0.0 K/mm3 (0.0-0.1) 07/14/17 04:50 Seg Neutrophils % 59.3 % (40.0-70.0) 07/14/17 04:50 Seg Neutrophils # 5.1 K/mm3 (1.8-7.7) 07/14/17 04:50 PT 13.1 Sec. (12.2-14.9) 07/12/17 20:58 INR 0.95 (0.87-1.13) 07/12/17 20:58 APTT 27.3 Sec. (24.2-36.6) 07/12/17 20:58 Activated Clotting Time 224 (74-137) H 07/13/17 12:37 Heparin Anti-Xa Level 0.27 U.I./ml (0.3-0.7) L 07/13/17 04:22 Sodium 136 mmol/L (137-145) L 07/14/17 04:50 Potassium 4.5 mmol/L (3.6-5.0) 07/14/17 04:50 Chloride 97.5 mmol/L (98-107) L 07/14/17 04:50 Carbon Dioxide 24 mmol/L (22-30) 07/14/17 04:50 Anion Gap 19 mmol/L 07/14/17 04:50 BUN 12 mg/dL (9-20) 07/14/17 04:50 Creatinine 0.8 mg/dL (0.8-1.5) 07/14/17 04:50 Estimated GFR > 60 ml/min 07/14/17 04:50 BUN/Creatinine Ratio 15 % 07/14/17 04:50 Glucose 96 mg/dL (75-100) 07/14/17 04:50 POC Glucose 84 (70-105) 07/14/17 07:48 Calcium 8.9 mg/dL (8.4-10.2) 07/14/17 04:50 Total Bilirubin 0.30 mg/dL (0.1-1.2) 07/12/17 16:06 Direct Bilirubin < 0.2 mg/dL (0-0.2) 07/12/17 16:06 Indirect Bilirubin 0.1 mg/dL 07/12/17 16:06 AST 52 units/L (5-40) H 07/12/17 16:06 ALT 45 units/L (7-56) 07/12/17 16:06 Alkaline Phosphatase 49 units/L (35-129) 07/12/17 16:06 Total Creatine Kinase 452 units/L (55-170) H 07/14/17 04:50 CK-MB (CK-2) 32.6 ng/mL (0.0-4.0) H 07/14/17 04:50 CK-MB (CK-2) Rel Index 7.2 (0-4) H 07/14/17 04:50 Troponin T 0.466 ng/mL (0.00-0.029) H* D 07/14/17 04:50 Total Protein 7.9 g/dL (6.3-8.2) 07/12/17 16:06 Albumin 4.6 g/dL (3.9-5) 07/12/17 16:06 Albumin/Globulin Ratio 1.4 % 07/12/17 16:06 Triglycerides 89 mg/dL (2-149) 07/12/17 09:57 Cholesterol 197 mg/dL (50-199) 07/12/17 09:57 LDL Cholesterol Direct 146 mg/dL (50-130) H 07/12/17 09:57 HDL Cholesterol 34 mg/dL (40-59) L 07/12/17 09:57 Cholesterol/HDL Ratio 5.79 % 07/12/17 09:57 Urine Color Yellow (Yellow) 07/12/17 Unknown Urine Turbidity Clear (Clear) 07/12/17 Unknown Urine pH 5.0 (5.0-7.0) 07/12/17 Unknown Ur Specific [place] 1.027 (1.003-1.030) 07/12/17 Unknown Urine Protein <15 mg/dl mg/dL (Negative) 07/12/17 Unknown Urine Glucose (UA) Neg mg/dL (Negative) 07/12/17 Unknown Urine Ketones Neg mg/dL (Negative) 07/12/17 Unknown Urine Blood Neg (Negative) 07/12/17 Unknown Urine Nitrite Neg (Negative) 07/12/17 Unknown Urine Bilirubin Neg (Negative) 07/12/17 Unknown Urine Urobilinogen < 2.0 mg/dL (<2.0) 07/12/17 Unknown Ur Leukocyte Esterase Neg (Negative) 07/12/17 Unknown Urine WBC (Auto) 4.0 /HPF (0.0-6.0) 07/12/17 Unknown Urine RBC (Auto) 9.0 /HPF (0.0-6.0) 07/12/17 Unknown Urine Mucus 3+ /HPF 07/12/17 Unknown Urine Opiates Screen Presumptive negative 07/12/17 18:35 Urine Methadone Screen Presumptive negative 07/12/17 18:35 Ur Barbiturates Screen Presumptive negative 07/12/17 18:35 Ur Phencyclidine Scrn Presumptive negative 07/12/17 18:35 Ur Amphetamines Screen Presumptive negative 07/12/17 18:35 U Benzodiazepines Scrn Presumptive negative 07/12/17 18:35 Urine Cocaine Screen Presumptive negative 07/12/17 18:35 U Marijuana (THC) Screen Presumptive negative 07/12/17 18:35 Drugs of Abuse Note Disclamer 07/12/17 18:35 Blood Type A POSITIVE 07/12/17 16:06 Antibody Screen Negative 07/12/17 16:06
--- NOTE | 2017-07-14 12:08 | Discharge Summary ---
Providers - Providers Date of Admission: 07/12/17 21:25 Date of discharge: 07/14/17 Attending physician: RODNEY VELASQUEZ 07/12/17 17:47 Consult to Physician [CONS] Urgent Consulting Provider: ADWOA ARROYO Reason For Exam: trop leak abn EKG CP Notified:: yes 07/13/17 Consult to Cardiac Rehabilitation [CONS] Routine Reason For Exam: post pci Primary care physician: HEALTHCARE ANALYST Hospitalization Condition: Stable Hospital course: Patient is a 37-year-old man which are GERD, tobacco dependency (1 pack of [place] will last him 1 week) and alcohol abuse (a 5th of Joseph Tequila will last him 1 day) who presented with CP. He was found to have elevated troponin and diagnosed with non-STEMI and treated with IV heparin. He under cardiac cath and results as follows: Cardiac cath completed via R radial approach, no complications. Findings: >95% mid LAD stenosis. Successful PCI with 3.5-4.0mm DE stents. Excellent post PCI results, no complications. -NSTEMI s/p pci, EF was 50-55%: Cardiology following bb,asa, plavix, statin, ntg -Alcohol abuse: Counseling done, start CIWA protocol -Tobacco dependancy: Counseling done -GERD: Use Pepcid due to stent D/c once cleared by Cardiology, he still has ntg paste Disposition: DC-01 TO HOME OR SELFCARE Time spent for discharge: 32 minutes Core Measure Documentation - Palliative Care Palliative Care/ Comfort Measures: Not Applicable - Core Measures Any of the following diagnoses?: acute [place] - VTE Discharge Requirements Deep Vein Thrombosis/Pulmonary Embolism Present on Admission: No Has pt received <5 days of overlap therapy or INR<2.0: No Anticoagulant overlap therapy prescribed at discharge: No Contraindication No Overlap Therapy order at DC: Not Indicated - Acute [place] Discharge Requirements Aspirin at discharge: Yes KENZIE/ARB for LVSD if EF <40%: Not Applicable Beta faiza at discharge: Yes Statin for LDL = or >100 mg/dl on DC: Yes Exam - Physical Exam Narrative exam: GEN: WDWN, NAD, AWAKE, ALERT, ORIENTATED 3 HEENT: NCAT, EOMI, PERRL, OP Clear NECK: supple, no adenopathy, no thyromegaly, no JVD CVS/HEART: RRR, NORMAL S1S2, NO JVD, pulses present bilaterally CHEST/LUNGS: CTA B, Symmetrical chest expansion, good air entry bilaterally GI/Abdomen: soft, NTND, good bowel sounds, no guarding or rebound /Bladder: no suprapubic tenderness, no CVA or paraspinal tenderness EXT/Skin: no c/c/e, no obvious rash MSK: FROM x 4 Neuro: CN 2-12 grossly intact, no new focal deficits Psych: calm - Constitutional Vitals: Temp Pulse Resp BP Pulse Ox 97.8 F 68 18 136/92 98 07/14/17 07:37 07/14/17 10:00 07/14/17 10:00 07/14/17 09:08 07/14/17 10:00 Plan Activity: other (no strenous activity including work until cleared by Cardiology ) Diet: low salt Follow up with: PRIMARY CAREMD [Primary Care Provider] - 3-5 Days ADWOA ARROYO MD [Staff Physician] - 7 Days Prescriptions: AtorvaSTATin [Lipitor] 20 mg PO QHS #30 tablet Aspirin [Aspirin TAB] 325 mg PO QDAY #30 tablet Clopidogrel [Plavix] 75 mg PO QDAY #30 tablet Famotidine [Pepcid] 20 mg PO BID #60 tablet Metoprolol [Lopressor TAB] 25 mg PO BID #60 tablet Oxycodone HCl/Acetaminophen [Percocet 10/325 mg] 1 each PO Q4-6H PRN #20 tablet PRN Reason: Pain Thiamine [Vitamin B-1] 100 mg PO QDAY #30 tablet
== END 2017-07-14 14:17 | disposition home or self-care (01) | DRG 247 ==
LOC: ED 09:17 → 4A 21:25
PROVIDERS: ADMIT Internal Medicine; ATTEND Internal Medicine
PROC: 027034Z Dilation of Coronary Artery, One Artery with Drug-eluting Intraluminal Device, Percutaneous Approach (ICD-10-PCS; principal; 2017-07-13)
PROC: 4A023N7 Measurement of Cardiac Sampling and Pressure, Left Heart, Percutaneous Approach (ICD-10-PCS; 2017-07-13)
PROC: B2111ZZ Fluoroscopy of Multiple Coronary Arteries using Low Osmolar Contrast (ICD-10-PCS; 2017-07-13)
PROC: B2151ZZ Fluoroscopy of Left Heart using Low Osmolar Contrast (ICD-10-PCS; 2017-07-13)
DX: I21.4 Non-ST elevation (NSTEMI) myocardial infarction (principal); K21.9 Gastro-esophageal reflux disease without esophagitis; F10.10 Alcohol abuse, uncomplicated; I10 Essential (primary) hypertension; F17.210 Nicotine dependence, cigarettes, uncomplicated; I24.9 Acute ischemic heart disease, unspecified; Z71.6 Tobacco abuse counseling
CPT/HCPCS: 36415; 71045; 80048; 80061; 80074; 80307; 81001; 82550; 82553; 82962; 84484; 85014; 85018; 85025; 85049; 85347; 85520; 85610; 85730; 86850; 86900; 86901; 92928; 93005; 93010; 93458; 96361; 96374; 99406; A9270-GY; C1725; C1769; C1874; C1887; C1894; C9600; J1644; J2250; J2270; J3010; J7030; J7040; Q9967